=== PATIENT | male | born 1980 | race Two or more races ===

== ENCOUNTER 2016-10-23 11:58 | Emergency (ER) | payer OTHER ==
--- NOTE | 2016-10-23 12:31 | CPEKG ---
Heart Rate: 100 RR Interval: 600 P-R Interval: 152 QRSD Interval: 82 QT Interval: 336 QTC Interval: 434 P [place]: 46 QRS [place]: 17 T Wave [place]: 18 EKG Severity - ABNORMAL ECG - EKG Impression: SINUS TACHYCARDIA EKG Impression: ST ELEVATION, PROBABLE LATERAL INJURY Electronically Signed By: Katrin Hughes 23-Oct-2016 14:24:50
[2016-10-23] MEDS ORDERED: ASPIRIN 81 MG CHEWABLE TAB PO ONE (12:56)
[2016-10-23] MEDS ORDERED: NS 500 ML IV ONE (12:56)
--- NOTE | 2016-10-23 13:00 | EDPHY ---
H & P Time Seen by Provider: 10/23/16 12:14 HPI/ROS: CHIEF COMPLAINT: Chest pain HISTORY OF PRESENT ILLNESS: Patient is a 36-year-old male with no previous cardiac history presents emergency department with left-sided chest pain. Patient is visiting his brother and flew in from [place]. This morning at 6am he developed left-sided chest pain. It is moderate. It does not radiate. It has been constant. He has mild shortness of breath. No cough or fever. It is not positional. The patient denies any leg pain or swelling. REVIEW OF SYSTEMS: My complete review of systems is negative except as mentioned in the HPI. Past Medical/Surgical History: Negative Past surgical history: Negative Social history: The patient is [place]. Does not smoke. Smoking Status: Never smoked Physical Exam: Vitals noted. Mild tachycardia. GENERAL: Well-appearing, in no acute distress, alert. HEENT: Eyes normal to inspection, normal pharynx, no signs of dehydration. NECK: No thyromegaly, no lymphadenopathy, supple. RESPIRATORY: Clear to auscultation bilaterally, no rales, rhonchi or wheezing. CVS: Regular mild tachycardia, no rubs, murmurs, or gallops. Chest wall: Mild left-sided chest wall tenderness palpation replicates symptoms. ABDOMEN: Soft, nontender, nondistended, no organomegaly. BACK: Normal to inspection, no CVA tenderness. SKIN: Normal color, no rash, warm, dry. No pallor. EXTREMITIES: No pedal edema, no calf tenderness, no Homans sign or cords, no joint swelling. NEURO/PSYCH: Alert and oriented x3, normal mood and affect, normal motor sensory exam. Constitutional: Initial Vital Signs Temperature (C) 37.5 C 10/23/16 12:01 Heart Rate 107 H 10/23/16 12:01 Respiratory Rate 16 10/23/16 12:01 Blood Pressure 155/99 H 10/23/16 12:01 O2 Sat (%) 93 10/23/16 12:01 O2 Delivery Mode Room Air Allergies/Adverse Reactions: No Known Allergies Allergy (Unverified 10/23/16 12:00) Home Medications: Medication Instructions Recorded Ibuprofen 600 mg PO TID 7 Days 10/23/16 Medical Decision Making ED Course/Re-evaluation: In the emergency department an IV was placed. Patient had laboratory studies obtained. Chest x-ray and EKG ordered. Patient was given aspirin 324 mg orally. EKG. Patient has ST elevation in I, II, aVL, V4-V6. This has upward concavity. Mild pr depression laterally. Pr elevation AVR 1300: I discussed case with Dr. Rhonda Vallejo who was in the emergency department. She evaluated the EKG. A stat echo was ordered. Patient was given Toradol 30 mg IV. I updated the patient has the plan. Patient had mildly elevated white count 11. Patient's troponin was negative. D- dimer negative. Echo: Please refer the dictated report by Dr. Ranjan Ballard. Discussed the case with him personally. No acute disease noted. I discussed the case with Dr. Ballard. He felt the patient did not need further diagnostics. He felt he was safe for discharge. The patient will be taken 10 days of ibuprofen. He is given warnings prior to leaving. He will return with worsening symptoms. 14 16: The patient's repeat EKG is unchanged from the previous. 1458: Repeat troponin negative. I discussed the result with the patient. I answered all his questions. He was given warnings prior to leaving. Will return with worsening symptoms. Differential Diagnosis: My differential includes but is not limited to pericarditis, ACS, acute PA, dissection, aneurysm, pneumonia, pneumothorax, pulmonary embolus - Data Points Laboratory Results: Laboratory Results 10/23/16 12:20 10/23/16 12:20 10/23/16 10/23/16 10/23/16 14:10 12:20 12:20 WBC RBC Hgb Hct MCV MCH MCHC RDW Plt Count MPV Neut % (Auto) Lymph % (Auto) [place] % (Auto) Eos % (Auto) Baso % (Auto) Nucleat RBC Rel Count Absolute Neuts (auto) Absolute Lymphs (auto) Absolute Monos (auto) Absolute Eos (auto) Absolute Basos (auto) Absolute Nucleated RBC Immature Gran % Immature Gran # D-Dimer < 0.27 ug/mLFEU ug/mLFEU (0.00-0.50) Sodium 140 mEq/L mEq/L (134-144) Potassium 3.9 mEq/L mEq/L (3.5-5.2) Chloride 101 mEq/L mEq/L (97-110) Carbon Dioxide 27 mEq/l mEq/l (22-31) Anion Gap 12 mEq/L mEq/L (8-16) BUN 10 mg/dL mg/dL (7-23) Creatinine 0.8 mg/dL mg/dL (0.7-1.3) Estimated GFR > 60 Glucose 108 mg/dL H mg/dL (70-100) Calcium 9.6 mg/dL mg/dL (8.5-10.4) Troponin I < 0.012 ng/mL ng/mL < 0.012 ng/mL ng/mL (0-0.034) (0-0.034) 10/23/16 12:20 WBC 11.09 10^3/uL H 10^3/uL (3.80-9.50) RBC 5.03 10^6/uL 10^6/uL (4.40-6.38) Hgb 16.3 g/dL g/dL (13.7-17.5) Hct 45.0 % % (40.0-51.0) MCV 89.5 fL fL (81.5-99.8) MCH 32.4 pg pg (27.9-34.1) MCHC 36.2 g/dL g/dL (32.4-36.7) RDW 12.5 % % (11.5-15.2) Plt Count 182 10^3/uL 10^3/uL (150-400) MPV 10.9 fL fL (8.7-11.7) Neut % (Auto) 78.9 % H % (39.3-74.2) Lymph % (Auto) 9.6 % L % (15.0-45.0) [place] % (Auto) 10.2 % % (4.5-13.0) Eos % (Auto) 0.4 % L % (0.6-7.6) Baso % (Auto) 0.5 % % (0.3-1.7) Nucleat RBC Rel Count 0.0 % % (0.0-0.2) Absolute Neuts (auto) 8.76 10^3/uL H 10^3/uL (1.70-6.50) Absolute Lymphs (auto) 1.07 10^3/uL 10^3/uL (1.00-3.00) Absolute Monos (auto) 1.13 10^3/uL H 10^3/uL (0.30-0.80) Absolute Eos (auto) 0.04 10^3/uL 10^3/uL (0.03-0.40) Absolute Basos (auto) 0.05 10^3/uL 10^3/uL (0.02-0.10) Absolute Nucleated RBC 0.00 10^3/uL 10^3/uL (0-0.01) Immature Gran % 0.4 % % (0.0-1.1) Immature Gran # 0.04 10^3/uL 10^3/uL (0.00-0.10) D-Dimer Sodium Potassium Chloride Carbon Dioxide Anion Gap BUN Creatinine Estimated GFR Glucose Calcium Troponin I Medications Given: Discontinued Medications Aspirin (Aspirin) 324 mg PO EDNOW ONE Stop: 10/23/16 12:57 Last Admin: 10/23/16 13:03 Dose: 324 mg Sodium Chloride (Ns) 500 mls @ 0 mls/hr IV ONCE ONE PRN Reason: As Directed Stop: 10/23/16 12:57 Last Admin: 10/23/16 13:03 Dose: 500 mls Ketorolac Tromethamine (Toradol) 30 mg IVP EDNOW ONE Stop: 10/23/16 13:03 Last Admin: 10/23/16 13:06 Dose: 30 mg Departure - Departure Disposition: Home, Routine, Self-Care Clinical Impression: Chest pain Qualifiers: Chest pain type: other chest pain Qualified Code(s): R07.89 - Other chest pain Pericarditis Qualifiers: Pericarditis type: idiopathic Chronicity: acute Qualified Code(s): I30.0 - Acute nonspecific idiopathic pericarditis Condition: Good Instructions: Chest Pain (ED), Acute Pericarditis (ED) Additional Instructions: Return with increasing chest pain, shortness of breath, persistent fever or any other concerns. Take ibuprofen daily for discomfort. Referrals: Ranjan Ballard MD [Medical Doctor] - 5-7 days, call for appt. Prescriptions: Ibuprofen 600 mg PO TID 7 Days
[2016-10-23 13:01] LABS: % IMMATURE GRANULYOCYTES 0.4 % (0.0-1.1); ABSOLUTE IMMATURE GRANULOCYTES 0.04 10^3/uL (0.00-0.10); ADD DIFF? NO; ADD MORPH? NO; ADD SCAN? NO; ATYPICAL LYMPHOCYTE FLAG 10 (0-99); FRAGMENT RBC FLAG 0 (0-99); HEMOGLOBIN 16.3 g/dL (13.7-17.5); LEFT SHIFT FLG 0 (0-99); LIPEMIA HEMOLYSIS FLAG 90 (0-99); MEAN CELL HEMOGLOBIN 32.4 pg (27.9-34.1); MEAN CELL HEMOGLOBIN CONCENTR. 36.2 g/dL (32.4-36.7); MEAN CELL VOLUME 89.5 fL (81.5-99.8); MEAN PLATELET VOLUME 10.9 fL (8.7-11.7); PLATELET CLUMPS FLAG 0 (0-99); PLATELET COUNT 182 10^3/uL (150-400); RED BLOOD CELL COUNT 5.03 10^6/uL (4.40-6.38); RED CELL DISTRIBUTION WIDTH 12.5 % (11.5-15.2)
[2016-10-23] MEDS ORDERED: KETOROLAC 30 MG/1 ML SDV IVP ONE (13:02)
[2016-10-23 13:09] LABS: ANION GAP 12 mEq/L (8-16); CALCIUM 9.6 mg/dL (8.5-10.4); CARBON DIOXIDE 27 mEq/l (22-31); CHLORIDE 101 mEq/L (97-110); CREATININE 0.8 mg/dL (0.7-1.3); GLOMERULAR FILTRATION RATE > 60; GLUCOSE 108 mg/dL (70-100); POTASSIUM 3.9 mEq/L (3.5-5.2); SODIUM 140 mEq/L (134-144)
[2016-10-23 13:18] LABS: TROPONIN I < 0.012 ng/mL (0-0.034)
--- NOTE | 2016-10-23 13:56 | ECHO ---
[id number] + + [address] : : [place] [address] : : [phone] + + Adult Echocardiographic Report + -+ :Name: NIKOLAS STILESJefry Date: 10/23/2016 01:24 PM : : Hospital Admission Number: [id number] : :: 1980 Gender: Male Height: 69 in : :Age: 36 yrs Race: [facility] Weight: 155 lb : :Reason For Study: Chest pain : : BSA: 1.9 meters 2: :History: No previous : + -+ MMode/2D Measurements \T\ Calculations LVOT diam: 1.9 cm LVLd ap4: 9.5 cm SV(MOD-sp4): 52.0 ml LVOT area: 2.8 cm2 EDV(MOD-sp4): 81.0 ml LVLs ap4: 6.9 cm ESV(MOD-sp4): 29.0 ml EF(MOD-sp4): 64.2 % Normal Measurement Values: + + :LVIDd (3.5-5.7cm) IVSd (0.6-1.1cm) LVPWd (0.6-1.1cm) Aortic Root (2.0-3.7cm)Left Atrium (1.5-4.0cm): :LV Vol(d) (76-115ml) LV Vol(s) (29-48ml) Ejec Fraction (50-65%)PV Edilberto (0.6- 1.2m/s) TV Edilberto (0.4-1.0m/s) : :MV E Edilberto (0.8-1.0m/s)MV A Edilberto (0.3-1.0m/s)LVOT Edilberto (0.7-1.2m/s) Asc Ao Edilberto ( 0.9-1.8m/s) : + + Doppler Measurements \T\ Calculations MV E max edilberto: MV V2 max: Ao V2 max: LV V1 max: 88.8 cm/sec 82.6 cm/sec 144.0 cm/sec 123.0 cm/sec MV A max edilberto: MV max PG: Ao max P.3 mmHg LV V1 max P.0 cm/sec 2.7 mmHg Ao mean P.0 mmHg 6.1 mmHg MV E/A: 1.2 MV V2 mean: Ao V2 mean: LV V1 mean PG: MV dec time: 65.9 cm/sec 101.0 cm/sec 3.0 mmHg 0.24 sec MV mean PG: Ao V2 VTI: 27.5 cm LV V1 mean: 2.0 mmHg ZACH(I,D): 2.4 cm2 79.0 cm/sec MV V2 VTI: 19.2 cm LV V1 VTI: 22.8 cm MVA(VTI): 3.4 cm2 ZACH(V,D): 2.4 cm2 SV(LVOT): 64.6 ml PA V2 max: PI end-d edilberto: RAP systole: 91.2 cm/sec 107.0 cm/sec 10.0 mmHg PA max P.4 mmHg Left Ventricle The left ventricle is normal in size and function. There is normal left ventricular wall thickness. Ejection Fraction = 65%. No regional wall motion abnormalities noted. Right Ventricle The right ventricle is normal in size and function. Atria The left atrial size is normal. Right atrial size is normal. Mitral Valve The mitral valve is normal in structure and function. There is no mitral valve stenosis. There is trace mitral regurgitation. Tricuspid Valve The tricuspid valve is normal in structure and function. There is no tricuspid stenosis. There is trace tricuspid regurgitation. Right ventricular systolic pressure is normal. Aortic Valve The aortic valve is not well visualized. There is no aortic stenosis. There is no aortic insufficiency. Pulmonic Valve The pulmonic valve is normal in structure and function. There is no pulmonic valvular stenosis. Trace pulmonic valvular regurgitation. Great Vessels The aortic root is normal size. Pericardium/Pleural There is no pericardial effusion. Conclusion A complete two-dimensional transthoracic echocardiogram was performed (2D, M-mode, Doppler and color flow Doppler). The left ventricle is normal in size and function. Ejection Fraction = 65%. There is trace mitral regurgitation. There is trace tricuspid regurgitation. Right ventricular systolic pressure is normal. The aortic valve is not well visualized. Trace pulmonic valvular regurgitation. Final Reading Physician: Jennifer Manuel signed on 10/23/2016 01:54 PM Ordering Physician: KALEIGH BLANK Performed By: Britt Cabello
--- NOTE | 2016-10-23 14:18 | CPEKG ---
Heart Rate: 83 RR Interval: 723 P-R Interval: 144 QRSD Interval: 80 QT Interval: 360 QTC Interval: 423 P [place]: 29 QRS [place]: 23 T Wave [place]: 15 EKG Severity - ABNORMAL ECG - EKG Impression: SINUS RHYTHM EKG Impression: ST ELEVATION, PROBABLE LATERAL INJURY Electronically Signed By: Katrin Hughes 23-Oct-2016 14:24:50
[2016-10-23 15:19] VITALS: BP 119/78; PULSE 67; RESP 15; TEMP 98.2; O2SAT 96
== END 2016-10-23 15:17 | disposition home or self-care (01) ==
DX: I30.0 Acute nonspecific idiopathic pericarditis (principal)
CPT/HCPCS: 96374; J1885